=== PATIENT | female | born 1955 | race Hispanic/Latino ===

== ENCOUNTER 2024-11-11 20:22 | Inpatient (IN) | payer OTHER ==
[2024-11-11 21:05] LABS: Absolute Lymphocytes (CBC) 1.3 K/uL (0.7-4.9); Hematocrit 37.2 % (36.0-45.0); Hemoglobin 12.4 g/dL (12.0-15.0); MCH 31.9 pg (27.0-35.0); MCHC 33.4 g/dL (32.0-36.0); MCV 95.4 fL (80-100); MPV 8.2 fL (7.6-11.3); Nucleated RBC Absolute Count 0.0 (0-0); Nucleated Red Blood Cells % 0.1 % (0-0); RBC Red Blood Cell Count 3.91 M/uL (3.86-4.86); White Blood Count 7.90 thou/uL (4.3-10.9)
[2024-11-11 21:06] LABS: Urine Microscopic Reflex YN NO UMIC
[2024-11-11] MEDS ORDERED: MORPHINE 4 MG/ML SYR ONE (21:17)
[2024-11-11] MEDS ORDERED: ONDANSETRON 4 MG/2 ML VIAL ONE (21:17)
[2024-11-11 21:50] LABS: AST/SGOT 11 U/L (15-37); Albumin 3.2 g/dL (3.4-5.0); Albumin/Globulin Ratio 0.7 (1.1-1.8); Alkaline Phosphatase 103 U/L (45-117); Anion Gap 6.8 mEq/L (5.0-15.0); BUN Blood Urea Nitrogen 18 mg/dL (7-18); Globulin 4.3 g/dL (2.3-3.5); Glucose Level 121 mg/dL (74-106); Lipase 46 U/L (13-75); Potassium 3.8 mEq/L (3.5-5.1); Troponin High Sensitivity 5.7 pg/mL (<58.9)
[2024-11-11 21:51] LABS: ALT/SGPT < 14 U/L (13-56)
--- NOTE | 2024-11-11 22:39 | RAD REPORT ---
EXAMINATION: CT Abdomen Pelvis W Contrast CLINICAL INDICATION: Female, 69 years old. ABD PAIN TECHNIQUE: CT abdomen and pelvis was performed, after the administration of IV contrast, [facility]. Axial, sagittal and coronal reconstructions were obtained. One or more of the following dose reduction techniques were used: Automated exposure control, adjustment of the mA and k V according to patient size, and iterative reconstruction. Unless otherwise specified, incidental findings do not require dedicated imaging follow-up. COMPARISON: No prior exam. FINDINGS: LOWER CHEST: The visualized lung bases are clear. LIVER: Normal in size and contour. No focal lesion. BILIARY SYSTEM: Marked gallbladder distention with mild edema along the fundal wall. Calculi at the f undus, largest measuring 2.6 cm. SPLEEN: Normal size. No focal lesion. PANCREAS: No mass, ductal dilation, or kentrell-pancreatic fluid. ADRENALS: Left adrenal indeterminate 1.5 cm nodule KIDNEYS: Normal size and contour. Left lower pole 4 mm calculus. No hydronephrosis. URINARY BLADDER: Unremarkable. GASTROINTESTINAL TRACT: No evidence of free air, significant intra-abdominal free fluid, bowel obstru ction or abscess. Distal colonic diverticulosis. APPENDIX: Normal appendix. LYMPH NODES: No lymphadenopathy. MUSCULOSKELETAL: No acute or suspicious osseous abnormality. ADDITIONAL FINDINGS: Right adnexal fat-containing 2.4 cm lesion with marginal punctate calcifications compatible with a teratoma. IMPRESSION: Large calculus at the gallbladder neck with moderate distention. Please correlate clinically for evid ence of acute cholecystitis, and consider additional evaluation by ultrasound. Other incidental findings as above, including a 4 mm left lower renal pole calculus.
--- NOTE | 2024-11-12 00:28 | ER ---
Nurse's Notes [facility] Name: Peri Coley Age: 69 yrs Sex: Female : 1955 Arrival Date: 11/11/2024 Time: 20:22 Bed 14 Private MD: Diagnosis: Acute cholecystitis Presentation: 11/11 20:33 Chief complaint: EMS states: pt been having chest pain mid sternal since 3 days and ss12 back pain. pt had one bloody stool. complaining of nausea and vomiting. Blood sugar with EMS 141. Vitally stable. Normal sinus rhythm with EMS. Coronavirus screen: Client denies travel out of the [place] in the last 14 days. Ebola Screen: Patient negative for fever greater than or equal to 101.5 degrees Fahrenheit, and additional compatible Ebola Virus Disease symptoms Patient denies exposure to infectious person. Patient denies travel to an Ebola-affected area in the 21 days before illness onset. Initial Sepsis Screen: Does the patient meet any 2 criteria? No. Patient's initial sepsis screen is negative. Does the patient have a suspected source of infection? No. Patient's initial sepsis screen is negative. Risk Assessment: Do you want to hurt yourself or someone else? Patient reports no desire to harm self or others. Onset of symptoms was November 08, 2024. 20:33 Method Of Arrival: EMS: [facility] 20:44 Acuity: JOSE C 3 ss12 Triage Assessment: 20:33 General: Appears in no apparent distress. comfortable, Behavior is quiet. Pain: ss12 Complains of pain in epigastric pain Pain radiates to left chest Pain currently is 3 out of 10 on a pain scale. Quality of pain is described as aching, pressure, Pain began gradually, Is intermittent. EENT: No deficits noted. No signs and/or symptoms were reported regarding the EENT system. Neuro: No deficits noted. Level of Consciousness is awake, alert, obeys commands, Oriented to person, place, time, situation. Cardiovascular: Reports chest pain, Patient's skin is warm and dry. Rhythm is sinus rhythm. Respiratory: No deficits noted. Airway is patent Respiratory effort is even, Respiratory pattern is regular. GI: Abdomen is flat, non-distended, Reports bloody stool, nausea. : No deficits noted. No signs and/or symptoms were reported regarding the genitourinary system. Derm: No deficits noted. No signs and/or symptoms reported regarding the dermatologic system. Derm: Skin is intact, Skin is dry, Skin is pink, warm \T\ dry. normal. Musculoskeletal: No deficits noted. No signs and/or symptoms reported regarding the musculoskeletal system. Historical: - Allergies: 20:39 Augmentin ES-600; ss12 20:39 Bactrim; ss12 - Home Meds: 20:39 Synthroid 125 mcg Oral tablet 1 tab daily [Active]; ss12 - PMHx: 20:39 Hypothyroidism; ss12 - Immunization history:: Adult Immunizations up to date. - Infectious Disease History:: Denies. - Social history:: Smoking status: Patient denies any tobacco usage or history of. Screenin:43 [facility] ED Fall Risk Assessment (Adult) History of falling in the last 3 months, ss12 including since admission No falls in past 3 months (0 pts) Confusion or Disorientation No (0 pts) Intoxicated or Sedated No (0 pts) Impaired Gait No (0 pts) Mobility Assist Device Used No (0 pt) Altered Elimination No (0 pt) Score/Fall Risk Level 0 - 2 = Low Risk Oriented to surroundings, Maintained a safe environment, Educated pt \T\ family on fall prevention, incl call for assistance when getting out of bed, Assessed \T\ reinforced patient's understanding of fall precautions. Abuse screen: Denies threats or abuse. Denies injuries from another. Nutritional screening: No deficits noted. Tuberculosis screening: No symptoms or risk factors identified. Assessment: 20:33 Reassessment: see triage assessment. ss12 21:17 Reassessment: Patient appears in no apparent distress at this time. Patient and/or ss12 family updated on plan of care and expected duration. Pain level reassessed. Patient is alert, oriented x 3, equal unlabored respirations, skin warm/dry/pink. 22:14 Reassessment: Patient appears in no apparent distress at this time. Patient and/or ss12 family updated on plan of care and expected duration. Pain level reassessed. Patient is alert, oriented x 3, equal unlabored respirations, skin warm/dry/pink. Vital Signs: 20:33 BP 144 / 78; Pulse 72; Resp 16 S; Temp 97.9(O); Pulse Ox 100% on R/A; ss12 20:43 Weight 59.87 kg; Height 5 ft. 1 in. ; ss12 21:17 BP 127 / 75; Pulse 72; Resp 16; Pulse Ox 98% on R/A; ss12 22:14 BP 153 / 64; Pulse 77; Resp 16 S; Pulse Ox 99% on R/A; ss12 20:43 Body Mass Index 24.94 (59.87 kg, 154.94 cm) ss12 ED Course: 20:28 Patient arrived in ED. dr5 20:28 Raghu Isabel FNP-C [facility]. dr5 20:28 Josesito Carter MD is Attending Physician. dr5 20:33 Lillie Moreira, XAVI is Primary Nurse. ss12 20:38 EKG done, by natural resource technician. ts3 20:44 Triage completed. ss12 20:44 No provider procedures requiring assistance completed. ss12 20:44 Arm band placed on right wrist. ss12 20:44 Provided Education on: plan of care. ss12 20:45 Maintain EMS IV. Dressing intact. Site clean \T\ dry. Gauge \T\ site: 22 javy in left ss 12 wrist. Flushed with 10 mL NS. Patient maintains SpO2 saturation greater than 95% on room air. 20:45 Patient has correct armband on for positive identification. Client placed on continuous 12 cardiac and pulse oximetry monitoring. NIBP monitoring applied. satellite project site monitor on. 21:01 Initial lab(s) drawn, by excavation laborer, sent to lab. ts3 21:01 Urine collected: clean catch specimen, sent to lab. ts3 22:12 CT Abd/Pelvis - IV Contrast Only In Process Unspecified. EDMS 23:00 US Abdomen Limited: RUQ Please In Process Unspecified. EDMS 11/12 00:26 Harley Calle MD is Hospitalizing Provider. dr5 01:11 Foot Left 3 View XRAY Sent. ss12 Administered Medications: 11/11 21:20 Drug: Ondansetron IVP 4 mg IVP once; over 2 minutes Route: IVP; Site: left wrist; ss12 21:26 Not Given (Patient Refused): morphineor iv 4 mg IVP once over 4 mins ss12 21:26 Not Given (Patient Refused): ns 0.9% 1000 ml IV at 1 bolus Per protocol; to be given as ss12 a bolus over 60 minutes 11/12 00:38 Drug: metroNIDAZOLE IVPB 500 mg 100 ml IVPB once over 30 mins Volume: 100 ml; Route: ss12 IVPB; Infused Over: 30 mins; Site: left wrist; 00:45 Drug: Rocephin IV 1 grams IV at per protocol once; Given slow IV push per pharmacy ss12 instructions Route: IV; Rate: per protocol; Site: left wrist; Medication: 11/11 20:44 VIS not applicable for this client. ss12 Outcome: 11/12 00:28 Decision to Hospitalize by Provider. dr5 09:17 Patient left the ED. la1 Signatures: Dispatcher [employer] EDMS Govind Jenkins, ELAINE ACADEMIC HOSPITALIST-Cla1 Raghu Isabel ACADEMIC HOSPITALIST-Patricia ACADEMIC HOSPITALIST-Cdr5 Arabella Alfaro ts3 Lillie Moreira, RN RN ss12
--- NOTE | 2024-11-12 00:29 | EDPHYS ---
Physician Documentation [facility] Name: Peri Coley Age: 69 yrs Sex: Female : 1955 Arrival Date: 11/11/2024 Time: 20:22 Bed 14 Private MD: ED Physician Josesito Carter HPI: 11/11 22:43 This 69 yrs old Female presents to ER via EMS with complaints of Chest Pain, dr5 Back Pain, Bloody Stools. 22:43 Onset: The symptoms/episode began/occurred 3 day(s) ago. Patient is a 69-year-old dr5 female with history of hypothyroidism coming in with epigastric abdominal pain and right upper quadrant abdominal pain also going over the for the past 3 days. Patient reports intermittent nausea and/or vomiting. Patient reports only history is hypothyroidism. Patient denies any previous surgeries.. Historical: - Allergies: 20:39 Augmentin ES-600; ss12 20:39 Bactrim; ss12 - Home Meds: 20:39 Synthroid 125 mcg Oral tablet 1 tab daily [Active]; ss12 - PMHx: 20:39 Hypothyroidism; ss12 - Immunization history:: Adult Immunizations up to date. - Infectious Disease History:: Denies. - Social history:: Smoking status: Patient denies any tobacco usage or history of. ROS: 22:43 Constitutional: as per hpi dr5 Exam: 22:43 Constitutional: This is a well developed, well nourished patient who is awake, alert, dr5 and in no acute distress. Head/Face: Normocephalic, atraumatic. Eyes: Pupils equal round and reactive to light, extra-ocular motions intact. Lids and lashes normal. Conjunctiva and sclera are non-icteric and not injected. Cornea within normal limits. Periorbital areas with no swelling, redness, or edema. Neck: Trachea midline, no thyromegaly or masses palpated, and no cervical lymphadenopathy. Supple, full range of motion without nuchal rigidity, or vertebral point tenderness. No Meningismus. Chest/axilla: Normal chest wall appearance and motion. Nontender with no deformity. No lesions are appreciated. Cardiovascular: Regular rate and rhythm with a normal S1 and S2. Normal PMI, no JVD. No pulse deficits. Respiratory: Lungs have equal breath sounds bilaterally, clear to auscultation. No rales, rhonchi or wheezes noted. No increased work of breathing, no retractions or nasal flaring. Back: No spinal tenderness. No costovertebral tenderness. Full range of motion. Skin: Warm, dry with normal turgor. Normal color with no rashes, no lesions, and no evidence of cellulitis. MS/ Extremity: Pulses equal, no cyanosis. Neurovascular intact. Full, normal range of motion. Neuro: Awake and alert, GCS 15, oriented to person, place, time, and situation. Cranial nerves II-XII grossly intact. Motor strength 5/5 in all extremities. Sensory grossly intact. Cerebellar exam normal. Normal gait. 22:43 Abdomen/GI: Inspection: abdomen appears normal, Bowel sounds: normal, Palpation: moderate abdominal tenderness, in the epigastric area and right upper quadrant, Vital Signs: 20:33 BP 144 / 78; Pulse 72; Resp 16 S; Temp 97.9(O); Pulse Ox 100% on R/A; 12 20:43 Weight 59.87 kg; Height 5 ft. 1 in. ; 12 21:17 BP 127 / 75; Pulse 72; Resp 16; Pulse Ox 98% on R/A; 12 22:14 BP 153 / 64; Pulse 77; Resp 16 S; Pulse Ox 99% on R/A; [facility] 20:43 Body Mass Index 24.94 (59.87 kg, 154.94 cm) [facility] MDM: 20:30 Medical Screening Exam initiated dr5 11/12 00:09 Differential diagnosis: viral Infection, Cholecystitis, cholelithiasis, urinary tract dr5 infection, electrolyte abnormality, elevated troponin, pancreatitis. Data reviewed: vital signs, nurses notes, lab test result(s), cardiac enzymes, troponin i, CBC, white blood cell count, hemoglobin, hematocrit, platelets, electrolytes, sodium, potassium, chloride, serum bicarbonate, BUN, creatinine, serum glucose, urinalysis, radiologic studies, CT scan, plain films. 00:28 Consideration of Admission/Observation Patient was admitted/placed on observation. dr5 Management of patient was discussed with the following: Hospitalist: Dr. Calle. Chief Of Party: Dr. Mcnamara - recommended IV abx, NPO, and pain meds as needed. I considered the following discharge prescriptions or medication management in the emergency department I discussed and recommended Over The Counter medications, Medications were administered in the Emergency Department. See MAR. Care significantly affected by the following chronic conditions: Hypothyroidism. Care significantly affected by the following Social Determinants of Health: Poor access to healthcare and/or lack of insurance, Poor access to transportation, Problems related to employment. Counseling: I had a detailed discussion with the patient and/or guardian regarding the historical points, exam findings, and any diagnostic results supporting the discharge/admit diagnosis, the presence of at least one elevated blood pressure reading (>120/80) during this emergency department visit, lab results, radiology results, the need for further work-up and treatment in the hospital. Response to treatment: the patient's symptoms have markedly improved after treatment. ED course: Spoke with Dr. Mcnamara as well as Dr. Calle. Will admit patient for possible cholecystectomy tomorrow. . 11/11 20:29 Order name: CBC with Diff; Complete Time: 21:15 [facility] 11/11 20:29 Order name: CMP; Complete Time: 21:53 [facility] 11/11 20:29 Order name: Lipase; Complete Time: 21:53 [facility] 11/11 20:29 Order name: Troponin High Sensitivity; Complete Time: 21:53 [facility] 11/11 20:29 Order name: UA Rfx Silverio Cult if indicated; Complete Time: 21:15 [facility] 11/12 00:33 Order name: PT-INR [facility] 11/12 00:41 Order name: CBC with Automated Diff [facility] 11/12 00:41 Order name: CBC with Automated Diff [facility] 11/12 00:41 Order name: Comprehensive Metabolic Panel [facility] 11/12 00:41 Order name: Comprehensive Metabolic Panel [facility] 11/12 05:25 Order name: CBC with Automated Diff [facility] 11/12 06:27 Order name: Comprehensive Metabolic Panel [facility] 11/11 20:29 Order name: CT Abd/Pelvis - IV Contrast Only; Complete Time: 22:40 [facility] 11/11 22:42 Order name: US Abdomen Limited: RUQ Please [facility] 11/12 00:57 Order name: Foot Left 3 View XRAY [facility] 11/12 05:12 Order name: RAD [facility] 11/12 05:12 Order name: RAD [facility] 11/12 00:33 Order name: EKG; Complete Time: 00:34 [facility] 11/12 00:41 Order name: CONS Physician Consult [facility] 11/11 20:29 Order name: IV Saline Lock; Complete Time: 21: dr5 11/11 20:29 Order name: Labs collected and sent; Complete Time: : dr5 11/11 21:09 Order name: Labs - recollect needed: GREEN TOP; Complete Time: 21:20 [facility] 11/12 00:33 Order name: EKG - Nurse/Tech; Complete Time: 00:38 dr5 EC/12 20:32 Rate is 74 beats/min. Rhythm is regular. QRS [place] is Normal. [place] interval is normal at dr5 168 msec. QRS interval is normal at 80 msec. QT interval is normal at 386 msec. Administered Medications: 21:20 Drug: Ondansetron IVP 4 mg IVP once; over 2 minutes Route: IVP; Site: left wrist; 12 21:26 Not Given (Patient Refused): morphineor iv 4 mg IVP once over 4 mins ss12 21:26 Not Given (Patient Refused): ns 0.9% 1000 ml IV at 1 bolus Per protocol; to be given as ss12 a bolus over 60 minutes 11/12 00:38 Drug: metroNIDAZOLE IVPB 500 mg 100 ml IVPB once over 30 mins Volume: 100 ml; Route: ss12 IVPB; Infused Over: 30 mins; Site: left wrist; 00:45 Drug: Rocephin IV 1 grams IV at per protocol once; Given slow IV push per pharmacy ss12 instructions Route: IV; Rate: per protocol; Site: left wrist; Disposition Summary: 11/12/24 00:28 Hospitalization Ordered Notes: Hospitalization Status: Inpatient Admission dr5 Provider: Harley Calle Condition: Stable dr5 Problem: new dr5 Symptoms: are unchanged dr5 Bed/Room Type: Standard dr5 Location: [facility] ER HOLD(11/12/24 00:49) Room Assignment: ERHOLD-(11/12/24 00:49) cg Diagnosis - Acute cholecystitis dr5 Forms: - Medication Reconciliation Form dr5 - SBAR form dr5 - Leadership Thank You Letter dr5 Signatures: Dispatcher [employer] Ramonita Hernandez RN RN cg Forrester, Kelsey Maroul [facility] Raghu Isabel, ELAINE SPECIAL NEEDS LIBRARIAN-Cdr5 Lillie Moreira RN RN ss12 Corrections: (The following items were deleted from the chart) 00:34 00:34 PROTIME (+INR)+COAG.LAB.BRZ ordered. EDMS EDMS 00:49 00:28 Telemetry/MedSurg (Inpatient) dr5 cg 00:49 00:28 dr5 cg 00:58 00:58 Ankle Left 3 View+RAD.RAD.BRZ ordered. EDMS EDMS 01:34 00:28 Historians other than the Patient: dr5 dr5
--- NOTE | 2024-11-12 00:31 | P.HP ---
Certification for Inpatient Patient admitted to: Observation With expected LOS: <2 Midnights Practitioner: I am a practitioner with admitting privileges, knowledge of patient current condition, hospital course, and medical plan of care. Services: Services provided to patient in accordance with Admission requirements found in Title 42 Section 412.3 of the Code of Federal Regulations Patient History Date of Service: 11/12/24 Reason for admission: Abdominal pain History of Present Illness: 69-year-old female with past medical history of hypothyroidism who was brought to ER with abdominal pain and back pain which has been going on for the last 3 days and has been progressively getting worse and was brought to ER. Pain is mostly in the right upper quadrant. Pain has been slowly getting worse and associated with intermittent nausea and vomiting. She was assessed in the ER and was found to have gallstones and was admitted for further management and surgical consult for possible cholecystitis Allergies amoxicillin [From Augmentin] Allergy (Verified 11/12/24 01:09) Hives/Rash clavulanic acid [From Augmentin] Allergy (Verified 11/12/24 01:09) Hives/Rash - Past Medical/Surgical History Past Medical History: Reviewed- Non-Contributory -: Hypothyroidism Past Surgical History: Reviewed- Non-Contributory - Family History Family History: Reviewed- Non-Contributory - Social History Smoking Status: Never smoker Review of Systems 10-point ROS is otherwise unremarkable Physical Examination - Vital Signs Temperature: 97.8 F Blood Pressure: 132/76 Pulse: 88 Respirations: 18 Pulse Ox (%): 94 - Physical Exam General: Alert, Oriented x3 HEENT: Atraumatic, Normocephalic Neck: Supple Respiratory: Clear to auscultation bilaterally, Normal air movement Cardiovascular: Regular rate/rhythm, Normal S1 S2 Capillary refill: <2 Seconds Gastrointestinal: Soft and benign, W/out hepatosplenomegaly, Tenderness Musculoskeletal: No clubbing Integumentary: No rashes Neurological: Other (Alert awake nonfocal) Lymphatics: No axilla or inguinal lymphadenopathy - Studies Laboratory Data (last 24 hrs) 11/11/24 11/11/24 21:18 20:57 WBC 7.90 Hgb 12.4 Hct 37.2 Plt Count 289 Sodium 139 Potassium 3.8 BUN 18 Creatinine 0.45 L Glucose 121 H Total Bilirubin 0.3 AST 11 L ALT < 14 Alkaline Phosphatase 103 Lipase 46 Assessment and Plan - Plan Acute cholecystitis Cholelithiasis with large calculus in the gall bladder neck Pain control Surgery consulted IV antibiotic Monitor closely n.p.o. postmidnight IV hydration Hypothyroidism Continue home medications and titrate as needed Right adnexal possible teratoma Need outpatient follow-up with EN[facility] LEVEL MANAGER GI/DVT prophylaxis Advanced directive full code Discharge Plan: Home Plan to discharge in: 48 Hours - Advance Directives Does patient have a Living Will: No Does patient have a Durable POA for Healthcare: No - Code Status/Comfort Care Code Status: Full Code Time Spent Managing Pts Care (In Minutes): 48
[2024-11-12] MEDS ORDERED: ACETAMINOPHEN 325 MG TABLET PO PRN (00:33)
[2024-11-12] MEDS ORDERED: METRONIDAZOLE 500mg IVPB 500 MG/100 ML BAG IV ONE (00:40)
[2024-11-12] MEDS ORDERED: CEFTRIAXONE 1000 MG/VIAL ONE (00:40)
[2024-11-12] MEDS: NA CHLORIDE 0.9% 1,000 ML IV SCH (01:00)
[2024-11-12] MEDS ORDERED: PIPERACIL/TAZO 3.375 GM VIAL IV ONE (01:32)
[2024-11-12] MEDS ORDERED: NA CHLORIDE 0.9% 100 ML ONE (01:32)
[2024-11-12] MEDS: PIPER TAZO 3.375 GM in NA CHLORIDE 0.9% 100 ML IV SCH (01:40)
[2024-11-12 03:25] LABS: PT Prothrombin Time 12.5 SECONDS (10-13.0); Protime INR 1.11
[2024-11-12 03:41] VITALS: BMI 24.7
[2024-11-12 05:04] LABS: Absolute Lymphocytes (CBC) 1.9 K/uL (0.7-4.9); Hematocrit 31.1 % (36.0-45.0); Hemoglobin 10.7 g/dL (12.0-15.0); MCH 32.6 pg (27.0-35.0); MCHC 34.4 g/dL (32.0-36.0); MCV 94.9 fL (80-100); MPV 8.6 fL (7.6-11.3); Nucleated RBC Absolute Count 0.0 (0-0); Nucleated Red Blood Cells % 0.1 % (0-0); RBC Red Blood Cell Count 3.27 M/uL (3.86-4.86); White Blood Count 7.30 thou/uL (4.3-10.9)
--- NOTE | 2024-11-12 05:10 | RAD REPORT ---
XR ANKLE 3 OR MORE VIEWS LEFT, XR FOOT 1-2 VIEWS LEFT INDICATION: Pain COMPARISON: None TECHNIQUE: 3 views of the left ankle and 2 views of left foot FINDINGS: BONES: Bones are demineralized. No acute fracture or malalignment. No focal sclerotic or lytic lesi on. Calcaneus spur at insertion of Achilles tendon. SOFT TISSUE: Soft tissue swelling at lower leg and foot. OTHER: None. IMPRESSION: No acute bony abnormality. Electronically signed by: Monique Grande MD 11/12/2024 03:14 AM CDT Due to temporary technical issues with the PACS/[employer] reporting system, reports are being harriett d by the in-house radiologist without review as a courtesy to ensure prompt reporting the interpreting radiologist is fully responsible for the content of the report Transcribed Date/Time: 11/12/2024 5:10 AM
--- NOTE | 2024-11-12 05:10 | RAD REPORT ---
XR ANKLE 3 OR MORE VIEWS LEFT, XR FOOT 1-2 VIEWS LEFT INDICATION: Pain COMPARISON: None TECHNIQUE: 3 views of the left ankle and 2 views of left foot FINDINGS: BONES: Bones are demineralized. No acute fracture or malalignment. No focal sclerotic or lytic lesi on. Calcaneus spur at insertion of Achilles tendon. SOFT TISSUE: Soft tissue swelling at lower leg and foot. OTHER: None. IMPRESSION: No acute bony abnormality. Electronically signed by: Monique Grande MD 11/12/2024 03:14 AM CDT Due to temporary technical issues with the PACS/[employer] reporting system, reports are being harriett d by the in-house radiologist without review as a courtesy to ensure prompt reporting the interpreting radiologist is fully responsible for the content of the report Transcribed Date/Time: 11/12/2024 5:09 AM
[2024-11-12] MEDS ORDERED: HYDROCODONE/APAP 10/325 TAB ONE (05:33)
[2024-11-12] MEDS: HYDROCODONE/APAP 10/325 TAB PO PRN (05:42)
[2024-11-12 06:26] LABS: ALT/SGPT < 14 U/L (13-56); AST/SGOT 11 U/L (15-37); Albumin 2.9 g/dL (3.4-5.0); Albumin/Globulin Ratio 0.7 (1.1-1.8); Alkaline Phosphatase 84 U/L (45-117); Anion Gap 6.6 mEq/L (5.0-15.0); BUN Blood Urea Nitrogen 12 mg/dL (7-18); Globulin 3.9 g/dL (2.3-3.5); Glucose Level 101 mg/dL (74-106); Potassium 3.6 mEq/L (3.5-5.1)
--- NOTE | 2024-11-12 06:59 | P.PN ---
Date of Service: 11/12/24 Subjective: seen post-op, doing well; with some pain, but not as bad as pre-op Physical Exam: GEN: Alert, oriented, NAD CV: Regular rate and rhythm, no edema Pulm: Nonlabored respirations on room air, clear bilaterally ABD: soft, abd tenderness, nondistended Neuro: Normal speech, normal affect Problem List: Acute cholecystitis Left Foot pain Hypothyroidism 1.5 cm Left adrenal nodule, incidental finding Right adnexal lesion 2.4cm, incidental finding Acute cholecystitis on admission, presents with worsening RUQ abdominal pain and back pain for 2-3 days associated with intermittent nausea/vomiting. CT abd/pelvis:Multiple calculi at the gallbladder neck with moderate distention, largest 2.6 cm. 1.5 cm Left adrenal nodule. left lower pole 4mm calculus Right adnexal fat-containing 2.4 cm lesion with marginal punctate calcifications compatible with a teratoma. abdominal u/s done; pending report Dr. Mcnamara, general surgeon consulted s/p lap tara pain control, IVF IV zosyn (11/12-) Left Foot pain xray left ankle/foot noted soft tissue swelling at lower leg and foot otherwise negative. No fractures or sclerotic lesions. pain control Hypothyroidism confirm home meds, restart as appropriate 1.5 cm Left adrenal nodule, incidental finding Right adnexal lesion 2.4cm, incidental finding incidentally seen on CT imaging. Follow up with PCP for further discussion VTE: SCD Code: Full Dispo: Home Pending possible surgery, recovery Time Spent Managing Pts Care (In Minutes): 45
--- NOTE | 2024-11-12 08:11 | P.CNS ---
Date of Consult: 11/12/24 Reason for consult: Abdominal pain History of present illness: Patient is a 69-year-old female presented to the emergency room with 3-day history of biliary colic associated with nausea. Patient denies any vomiting, bloating, belching or heartburn. Patient says the pain radiates from her epigastric and right upper quadrant region to the back. Patient denies any diarrhea, constipation, blood per rectum, dysuria or hematuria. Patient denies any sore throat, runny nose, cough, headache, dizziness, chest pain, fever or chills. Review of systems: Otherwise unremarkable Past medical history: Hypothyroidism Past surgical history: Negative Allergies: Bactrim and Augmentin Social history: Patient denies smoking or drinking alcohol Family history: Noncontributory Vital signs: Stable, afebrile Physical exam: Awake, alert and oriented x 3 Head and neck exam: No icterus noted, no neck masses, no JVD, throat clear neck supple Chest: Clear Heart: S1-S2 Abdomen: Soft, nondistended, positive bowel sound, positive right upper quadrant tenderness with minimal rebound no rigidity or guarding Extremity: Neurovascular intact Neuro: Nonfocal Diagnostic data: White count, LFTs, ultrasound and CAT scan and x-ray of the left foot and ankle reviewed Assessment: Acute cholecystitis and cholelithiasis Plan/recommendation: Admit, n.p.o., IV fluid, IV antibiotics and to the OR for laparoscopic cholecystectomy possible open. Patient understands risk, benefits and alternatives and agrees to procedure. CC:
[2024-11-12] MEDS ORDERED: MIDAZOLAM HCL 2 MG/2 ML INJ ONE (09:19)
[2024-11-12] MEDS ORDERED: ONDANSETRON 4 MG/2 ML VIAL ONE (09:19)
[2024-11-12] MEDS ORDERED: LIDOCAINE 1% MPF 5 ML VIAL ONE (09:19)
[2024-11-12] MEDS ORDERED: FENTANYL CITR 100 MCG/2 ML ONE (09:20)
[2024-11-12] MEDS ORDERED: ROCURONIUM 50 MG/5 ML VIAL IV ONE (09:20)
[2024-11-12] MEDS: NA CHLORIDE 0.9% 1,000 ML ONE ×2 (10:21→11:49)
[2024-11-12] MEDS: BUPIVACAINE 0.5% PF 10 ML VIAL ONE (10:43)
[2024-11-12] MEDS ORDERED: EPHEDRINE SULF 50 MG/ML VIAL ONE (10:44)
[2024-11-12] MEDS ORDERED: HYDRALAZINE HCL 20 MG/ML VIAL ONE (10:59)
[2024-11-12] MEDS ORDERED: NEOSTIGMINE 1 MG/ML -10 ML VIAL ONE (11:20)
[2024-11-12] MEDS ORDERED: GLYCOPYRROLATE 0.2 MG/ML SYR ONE (11:20)
--- NOTE | 2024-11-12 11:42 | P.OP ---
Date of Service: 11/12/24 Preop diagnosis: Acute cholecystitis and cholelithiasis Postop diagnosis: Same Procedure performed: Laparoscopic cholecystectomy Surgeon: Eugenio Mcnamara MD Civil Engineer [employer]: Jade MCCARTHY Estimated blood loss: Minimal Specimen: Gallbladder Findings: As above Anesthesia: General Complications: None Drains: None Fluids and blood products: Nonapplicable Disposition: Recovery room Operative note: Patient brought to the OR and placed in supine position. General anesthesia began. Patient prepped and draped in usual sterile fashion. Marcaine 0.5% infiltrated locally. 15 blade used to make a 1 cm infraumbilical midline incision. Subcutaneous tissue divided and bleeding controlled cautery. Fascia identified and divided. #1 Vicryl stay suture placed. Peritoneal cavity entered with sharp and blunt dissection. 12 mm trocar placed into the peritoneal cavity under direct vision. Pneumoperitoneum established. Three 5 m m trocars placed under direct vision. 1 trocar placed in the epigastric region just to the right of midline. 2 trocars placed in the right subcostal region. Laparoscopy revealed a very distended gallbladder which was aspirated. Fundus was identified and retracted superiorly. Infundibulum was identified and retracted inferolaterally. Omental adhesions were taken down with sharp and blunt dissection. Bleeding controlled with cautery. Cystic duct and cystic artery clearly identified with blunt dissection. Clips placed in both structures divided. Cautery used to remove the gallbladder from the liver bed. Gallbladder retrieved through the umbilicus via Endo Catch bag. The fascia had to be extended as the gallbladder was quite large. Pneumoperitoneum reestablished. Irrigation revealed clear effluent with no evidence of bleeding or bile leakage appreciated. Subsequently all trocars removed under direct vision. Stay sutures tied to each other to reapproximate the fascial defect. #1 Vicryl used in addition to close the fascial defect. Subcutaneous was irrigated and bleeding controlled cautery. 3-0 chromic used to approximate subcutaneous tissue. Hessel used to close skin. Sterile dressing applied. Patient awakened and taken to recovery room in good general condition. CC:
--- NOTE | 2024-11-12 12:02 | RAD REPORT ---
EXAM: Right upper quadrant ultrasound. CLINICAL HISTORY: ABD PAIN COMPARISON: None. FINDINGS: Gallbladder: Distended containing sludge and stones. Gallbladder wall upper limit of normal measuring 3 mm. Bile ducts: No intrahepatic or extrahepatic biliary dilatation. Common bile duct measures 3 mm. Limited imaging of the liver shows no concerning finding. IMPRESSION: Distended gallbladder containing sludge and stones. Gallbladder wall is upper limit of normal. If concern for cholecystitis remains present clinically, suggest follow-up HIDA scan.
[2024-11-12] MEDS: MORPHINE 4 MG/ML SYR ONE ×2 (12:08→12:18)
[2024-11-12] MEDS: ONDANSETRON 4 MG/2 ML VIAL ONE (12:41)
[2024-11-12] MEDS ORDERED: HYDROCODONE/APAP 7.5/325 MG TAB PO PRN (12:43)
[2024-11-12] MEDS: HYDROMORPHONE HCL 1 MG/ML INJ IV PRN (13:39)
[2024-11-12] MEDS: ONDANSETRON 4 MG/2 ML VIAL IV PRN (15:58)
[2024-11-12] MEDS: ONDANSETRON 4 MG/2 ML VIAL IV ONE (20:13)
[2024-11-13 05:37] LABS: Absolute Lymphocytes (CBC) 1.7 K/uL (0.7-4.9); Hematocrit 29.9 % (36.0-45.0); Hemoglobin 10.0 g/dL (12.0-15.0); MCH 31.6 pg (27.0-35.0); MCHC 33.3 g/dL (32.0-36.0); MCV 95.0 fL (80-100); MPV 8.5 fL (7.6-11.3); Nucleated RBC Absolute Count 0.0 (0-0); Nucleated Red Blood Cells % 0.0 % (0-0); RBC Red Blood Cell Count 3.15 M/uL (3.86-4.86); White Blood Count 8.80 thou/uL (4.3-10.9)
[2024-11-13 05:56] LABS: ALT/SGPT 45.0 U/L (13-56); AST/SGOT 102.0 U/L (15-37); Albumin 2.5 g/dL (3.4-5.0); Albumin/Globulin Ratio 0.8 (1.1-1.8); Alkaline Phosphatase 64.0 U/L (45-117); Anion Gap 8.1 mEq/L (5.0-15.0); BUN Blood Urea Nitrogen 9.0 mg/dL (7-18); Globulin 3.1 g/dL (2.3-3.5); Glucose Level 97.0 mg/dL (74-106); Potassium 3.1 mEq/L (3.5-5.1)
[2024-11-13] MEDS ORDERED: POTASSIUM CL SA 10 MEQ TAB PO ONE (09:49)
[2024-11-13] MEDS: POTASSIUM CL SA 10 MEQ TAB PO ONE (10:05)
--- NOTE | 2024-11-13 11:14 | P.PN ---
Date of Service: 11/13/24 Subjective: continues with nausea and pain overnight and this morning, improving needing IV pain meds vitals stable afebrile Physical Exam: GEN: Alert, oriented, NAD CV: Regular rate and rhythm, no edema Pulm: Nonlabored respirations on room air, clear bilaterally ABD: soft, mild abdominal tenderness, surgical dressing in place Neuro: Normal speech, normal affect Problem List: Acute cholecystitis s/p lap tara (11/12) Left Foot pain Hypothyroidism 1.5 cm Left adrenal nodule, incidental finding Right adnexal lesion 2.4cm, incidental finding Acute cholecystitis s/p lap tara (11/12) on admission, presents with worsening RUQ abdominal pain and back pain for 2-3 days associated with intermittent nausea/vomiting. CT abd/pelvis:Multiple calculi at the gallbladder neck with moderate distention, largest 2.6 cm. left lower pole 4mm calculus Dr. Mcnamara, general surgeon consulted s/p lap tara (11/12) Diet/Wound care per surgery advance diet as tolerated pain control, IVF IV zosyn (11/12-) Left Foot pain xray left ankle/foot noted soft tissue swelling at lower leg and foot otherwise negative. No fractures or sclerotic lesions. pain control Hypothyroidism resume home synthroid 1.5 cm Left adrenal nodule, incidental finding Right adnexal lesion 2.4cm, incidental finding CT incidentally noted Right adnexal 2.4 cm lesion with marginal punctate calcifications compatible with a teratoma Also noted 1.5 cm Left adrenal nodule Follow up with PCP for further discussion VTE: SCD Code: Full Dispo: Home, ~1 day Pending nausea improves, tolerating diet Time Spent Managing Pts Care (In Minutes): 45
--- NOTE | 2024-11-13 13:20 | PN ---
Date of Progress Note: 11/13/2024 Subjective: The patient is complaining of generalized pain as well as abdominal pain and nausea, but no vomiting. She is tolerating some clear liquids. Objective: Vital Signs: Stable. She is afebrile. Abdomen: Benign. Dressing is clean, dry, and intact. Laboratory Data: Reviewed. Her H and H are stable. White count is 8.8. Her chemistry reviewed. P otassium is low, it is being replaced. Otherwise, essentially unremarkable. Assessment: Status post laparoscopic cholecystectomy. Recommendations: We will get Physical Therapy to help with the patient ambulation. Continue IV anti biotics and parenteral pain management. Advance diet as tolerated. The patient will probably need a nother day or so prior to discharge. Plan of care discussed with the hospitalist team. PARAMJIT/SUKH Voice ID: [id number] Report ID: [id number]
[2024-11-13] MEDS: NA CHLORIDE 0.9% 1,000 ML IV SCH (15:16)
[2024-11-13 20:20] VITALS: O2SAT 94
[2024-11-13] MEDS: POTASSIUM 25 MEQ EFFERV TAB PO ONE (23:55)
[2024-11-14 04:43] LABS: Anion Gap 8.7 mEq/L (5.0-15.0); BUN Blood Urea Nitrogen 6.0 mg/dL (7-18); Glucose Level 114.0 mg/dL (74-106); Magnesium 1.8 mg/dL (1.6-2.4); Potassium 3.7 mEq/L (3.5-5.1)
[2024-11-14] MEDS: LEVOTHYROXINE SOD 0.125 MG TAB PO SCH (05:04)
[2024-11-14 08:36] VITALS: BP 125/60; TEMP 98
--- NOTE | 2024-11-14 10:15 | P.DS ---
Admission Date: 11/12/24 Discharge Date: 11/14/24 Disposition: ROUTINE DISCHARGE Discharge Condition: GOOD Reason for Admission: Abdominal pain Consultations: General surgery - Dr. Mcnamara Brief History of Present Illness: 69yo F, PMH: hypothyroidism Patient was brought to ER with abdominal pain and back pain which has been going on for the last 3 days and has been progressively getting worse and was brought to ER. Pain is mostly in the right upper quadrant. Pain has been slowly getting worse and associated with intermittent nausea and vomiting. She was assessed in the ER and was found to have gallstones and was admitted for further management and surgical consult for possible cholecystitis Hospital Course: Problem List: Acute cholecystitis s/p lap tara (11/12) Left Foot pain Hypothyroidism 1.5 cm Left adrenal nodule, incidental finding Right adnexal lesion 2.4cm, incidental finding Physician discharge instructions: Patient presented with worsening RUQ abdominal pain associated with intermittent nausea/vomiting secondary to acute cholecystitis. CT abdomen on admission noted multiple calculi at the gallbladder neck with moderate distention, largest 2.6 cm. Abdominal ultrasound showed distended gallbladder containing sludge and stones. Patient was evaluated by Dr. Mcnamara, general surgeon and underwent lap tara on 11/12. Patients diet was slowly advanced post-op as pain and nausea improved. Patient was feeling better, abdominal pain and nausea improved, and was deemed stable for discharge. Patient was tolerating diet and ambulating without issues on day of discharge. Patient received IV Zosyn while hospitalized and is to complete 6 more days of oral Augmentin on discharge. She was noted to have a listed allergy to Augmentin however she was able to tolerate multiple doses of IV zosyn without issues which is similar to Augmentin. Discussed with patient that she is unlikely to have Augmentin allergy since she tolerated Zosyn without issues and its okay to take Augmentin on discharge. Advised patient to continue soft diet for next 3-5 days. Can slowly ease back into regular diet over the next week. Follow up with Dr. Mcnamara in his office in 1 week for further management. No heavy lifting > 10 lbs for 4-6 weeks or otherwise instructed by Dr. Mcnamara at follow up appointment Okay to shower with running water. No baths. Do not submerge wound underwater. CT abdomen on admission incidentally noted Right adnexal 2.4 cm lesion with marginal punctate calcifications compatible with a teratoma and also noted 1.5 cm Left adrenal nodule Recommend following up with PCP for further discussion. Medications: Augmentin for 6 more days [place] 5/325 as needed for pain Okay to take probiotic while on antibiotics Follow up: PCP 3-[address] Mcnamara in 1 week Please call to schedule / confirm appointments Physical Exam: GEN: Alert, oriented, NAD CV: Regular rate and rhythm, no edema Pulm: Nonlabored respirations on room air, clear bilaterally ABD: soft, minimal abdominal soreness, surgical dressing in place Neuro: Normal speech, normal affect Vital Signs/Physical Exam: Temp Pulse Resp BP Pulse Ox 98 F 72 17 125/60 94 11/14/24 08:00 11/14/24 08:00 11/14/24 08:00 11/14/24 08:00 11/14/24 08:00 Laboratory Data at Discharge: WBC 8.80 thou/uL (4.3-10.9) 11/13/24 04:50 Hgb 10.0 g/dL (12.0-15.0) L 11/13/24 04:50 Hct 29.9 % (36.0-45.0) L 11/13/24 04:50 Plt Count 208 thou/uL (152-406) 11/13/24 04:50 PT 12.5 SECONDS (10-13.0) 11/12/24 03:02 INR 1.11 11/12/24 03:02 Sodium 144 mEq/L (136-145) 11/14/24 04:14 Potassium 3.7 mEq/L (3.5-5.1) D 11/14/24 04:14 BUN 6 mg/dL (7-18) L 11/14/24 04:14 Creatinine 0.35 mg/dL (0.55-1.02) L 11/14/24 04:14 Glucose 114 mg/dL (74-106) H 11/14/24 04:14 Magnesium 1.8 mg/dL (1.6-2.4) 11/14/24 04:14 Total Bilirubin 0.6 mg/dL (0.2-1.0) 11/13/24 04:50 AST 102 U/L (15-37) H 11/13/24 04:50 ALT 45 U/L (13-56) 11/13/24 04:50 Alkaline Phosphatase 64 U/L (45-117) D 11/13/24 04:50 Lipase 46 U/L (13-75) 11/11/24 21:18 Home Medications: Levothyroxine [Synthroid*] 125 mcg PO [id number] 11/12/24 Amox Tr/Potassium Clavulanate [Augmentin 400-57 mg/5 ml] 11 ml PO BID 6 Days #132 ml 11/14/24 Hydrocodone 5/APAP 325 [[place] 5/325] 1 tab PO Q8H PRN #15 tab 11/14/24 Hydrocodone Bit/Acetaminophen [Hydrocodon-Acetaminophen 5-325] 1 tab PO Q8H PRN #15 tab 11/14/24 New Medications: Amox Tr/Potassium Clavulanate [Augmentin 400-57 mg/5 ml] 11 ml PO BID 6 Days #132 ml Hydrocodone Bit/Acetaminophen [Hydrocodon-Acetaminophen 5-325] 1 tab PO Q8H PRN #15 tab PRN Reason: Pain Scale 5-7 (Moderate) Hydrocodone 5/APAP 325 [[place] 5/325] 1 tab PO Q8H PRN #15 tab PRN Reason: Pain Physician Discharge Instructions: Physician discharge instructions: Patient presented with worsening RUQ abdominal pain associated with intermittent nausea/vomiting secondary to acute cholecystitis. CT abdomen on admission noted multiple calculi at the gallbladder neck with mod erate distention, largest 2.6 cm. Abdominal ultrasound showed distended gallbladder containing sludge and stones. Patient was evaluated by Dr. Mcnamara, general surgeon and underwent lap tara on 11/12. Patients diet was slowly advanced post-op as pain and nausea improved. Patient was feeling better, abdominal pain and nausea improved, and was deemed stable for discharge. Patient was tolerating diet and ambulating without issues on day of discharge. Patient received IV Zosyn while hospitalized and is to complete 6 more days of oral Augmentin on discharge. She was noted to have a listed allergy to Augmentin however she was able to tolerate multiple doses of IV zosyn without issues which is similar to Augmentin. Discussed with patient that she is unlikely to have Augmentin allergy since she tolerated Zosyn without issues and its okay to take Augmentin on discharge. Advised patient to continue soft diet for next 3-5 days. Can slowly ease back into regular diet over the next week. Follow up with Dr. Mcnamara in his office in 1 week for further management. No heavy lifting > 10 lbs for 4-6 weeks or otherwise instructed by Dr. Mcnamara at follow up appointment Okay to shower with running water. No baths. Do not submerge wound underwater. Medications: Augmentin for 6 more days [place] 5/325 as needed for pain Okay to take probiotic while on antibiotics Follow up: PCP 3-[address] Mcnamara in 1 week Please call to schedule / confirm appointments Patient may shower Dry gauze or Band-Aid to wound daily Follow-up my office 1 week, call for appointment Incentive spirometry as instructed Resume home meds and diet Activity as tolerated, no heavy lifting Antibiotics and pain medicine per the hospitalist team Diet: Regular Activity: No lifting more than 10 lbs Followup: Sissy ANTHONY,Noman Connelly DO [Primary Care Provider] - If your Condition Changes Eugenio Mcnamara MD [ACTIVE - CAN ADMIT] - 1 Week Time spent managing pt's care (in minutes): 45
--- NOTE | 2024-11-14 10:36 | PN ---
Date of Progress Note: 11/14/2024 Subjective: The patient is awake, alert. Feels better. Objective: Vital Signs: Stable. Afebrile. Abdomen: Benign. Assessment: Status post laparoscopic cholecystectomy. Recommendations: Patient cleared for discharge. Discharge instructions given. Patient will follow up with me in my office next week, and antibiotics and pain medicine per the hospitalist team. /MODKristian Voice ID: [id number] Report ID: [id number]
[2024-11-14] MEDS: DOCUSATE NA 100 MG CAP PO SCH (11:35)
== END 2024-11-14 15:16 | disposition home or self-care (01) | DRG 419 ==
LOC: ER 20:22 → ERHOLD 11-12 00:33 → 2ND 11-12 11:31
PROVIDERS: ADMIT Family Medicine; ATTEND Hospitalist
PROC: 0FT44ZZ Resection of Gallbladder, Percutaneous Endoscopic Approach (ICD-10-PCS; principal; 2024-11-12 10:45)
DX: K80.00 Calculus of gallbladder with acute cholecystitis without obstruction (principal); E03.9 Hypothyroidism, unspecified; M79.672 Pain in left foot; Z56.0 Unemployment, unspecified; Z88.1 Allergy status to other antibiotic agents; Z59.71 Insufficient health insurance coverage; Z59.82 Transportation insecurity; Z79.890 Hormone replacement therapy
CPT/HCPCS: 36415; 74177; 76705; 80048; 80053; 81003; 83690; 83735; 84484; 85025; 85610; 88304; 93005; 94010; 96374; 96375; 97116; 97161; 97530; 99285; J0360; J0696; J1171; J2003; J2250; J2405; J2543; J2704; J2710; J3010; J7030; Q9967